=== PATIENT | male | born 1970 | race Caucasian/White ===

== ENCOUNTER 2016-11-24 12:54 | Inpatient (IN) | payer OTHER ==
[~2016-11-24] VITALS: Ht 193 cm; Wt 107.3 kg
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
[2016-11-24 13:35] LABS: BASOPHIL # 0.1 K/uL (0.0-0.2); BASOPHIL % 0.9 %; EOSINOPHIL # 0.1 K/uL (0.0-0.5); HEMATOCRIT 44.6 % (37.0-53.0); HEMOGLOBIN 15.1 g/dL (12.0-17.0); IMMATURE GRANULOCYTE % 0.4 %; LYMPHOCYTE % 25.1 %; MCH 29.4 pg (27.0-34.0); MCHC 33.9 gm/dL (32.0-36.5); MCV 86.9 fl (83.0-98.0); MONOCYTE # 0.6 K/uL (0.0-1.0); MONOCYTE % 6.8 %; MPV 9.8 fl (9.4-12.4); NEUTROPHIL # (ANC) 5.3 K/uL (1.4-9.0); NEUTROPHIL % 65.8 %; NRBC % 0 /100WBC (0-0.00); PLATELET COUNT 318 K/uL (150-450); RBC 5.13 M/uL (4.00-6.00); RDW-CV 12.8 % (11.9-14.6); WBC 8.1 K/uL (4.0-11.0)
[2016-11-24 13:45] LABS: INR - (THERAPEUTIC) 1.1 (0.9-1.1); PROTIME 11.1 SECONDS (9.6-11.1); PTT 25 SECONDS (25-32)
[2016-11-24] MEDS ORDERED: VITAMIN C500 M2 PO (18:38)
[2016-11-24] MEDS ORDERED: THERAGRAN-M1 TAB PO (18:38)
[2016-11-24] MEDS ORDERED: TYLENOL EXTRA500 MG PO (18:39)
[2016-11-24] MEDS ORDERED: ADVIL200 MG PO (18:40)
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
[2016-11-25 04:04] LABS: BASOPHIL % 0.5 %; EOSINOPHIL % 0.5 %; HEMATOCRIT 41.2 % (37.0-53.0); HEMOGLOBIN 13.7 g/dL (12.0-17.0); IMMATURE GRANULOCYTE % 0.2 %; LYMPHOCYTE # 1.7 K/uL (0.8-4.0); LYMPHOCYTE % 20.5 %; MCH 29.1 pg (27.0-34.0); MCHC 33.3 gm/dL (32.0-36.5); MCV 87.5 fl (83.0-98.0); MONOCYTE # 0.8 K/uL (0.0-1.0); MONOCYTE % 9.5 %; MPV 9.8 fl (9.4-12.4); NEUTROPHIL # (ANC) 5.8 K/uL (1.4-9.0); NEUTROPHIL % 68.8 %; NRBC % 0 /100WBC (0-0.00); PLATELET COUNT 266 K/uL (150-450); RBC 4.71 M/uL (4.00-6.00); RDW-CV 13.1 % (11.9-14.6); WBC 8.4 K/uL (4.0-11.0)
[2016-11-25 04:19] LABS: ANION GAP 13.1 (10.0-19.0); BLOOD UREA NITROGEN 13 mg/dL (6-24); CALCIUM 7.7 mg/dL (8.5-10.5); CHLORIDE 106 mMol/L (96-110); CO2 24 mMol/L (22-32); CREATININE 0.8 mg/dL (0.6-1.3); ESTIMATED GFR (MDRD EQUATION) > 60; POTASSIUM 4.1 mMol/L (3.7-5.1); SODIUM 139 mMol/L (135-145)
--- NOTE | 2016-11-25 05:16 | NUR ---
A/O. HR 40-60s. SBP 120s. AFEBRILE. ROOM AIR. DRESSING TO L) FOREARM INTACT WITH SCANT AMOUNT OF DRAINAGE. 2 TAB NORCOx2. MORHINEx1. C/O NAUSEA ZOFRAN GIVEN 400ML EMESIS AFTER, REGLAN GIVEN WITH RELIF NOTED. SBA TO BATHROOM. NO BM. VOIDS PER URINAL.
--- NOTE | 2016-11-25 12:43 | NUR ---
Introduced self and role of care management to patient. He lives in [place] with his . He states that he is able to do all his own ADL's. His will be available to assist as needed. He plans on returning home on discharge. Will have a wound vac and outpatient WOC appointments. He denies any needs at this time. Will continue to follow.
--- NOTE | 2016-11-25 15:50 | NUR ---
Significant Event: ALERT AND ORIENTED. LEFT ARM DRESSING CHANGED THIS AM BY DR TREVINO. WOUND VAC ORDRED AND PLACED BY WO. STARTED ON TORDOL Q6H. IVF DISCONTINNUED. PATIENT WORKING WITH PT/OT. NERVE ENDINGS SENSITIVE. IF PATIENT MOVES CAN FEEL PINKY OCCASIONALLY. 1 SBA WITH AMBULATION. Follow up:
[2016-11-26 04:22] LABS: BASOPHIL # 0.1 K/uL (0.0-0.2); BASOPHIL % 0.7 %; EOSINOPHIL # 0.1 K/uL (0.0-0.5); EOSINOPHIL % 1.3 %; HEMATOCRIT 41.7 % (37.0-53.0); HEMOGLOBIN 13.8 g/dL (12.0-17.0); IMMATURE GRANULOCYTE % 0.3 %; LYMPHOCYTE # 1.6 K/uL (0.8-4.0); LYMPHOCYTE % 24.1 %; MCH 29.2 pg (27.0-34.0); MCHC 33.1 gm/dL (32.0-36.5); MCV 88.2 fl (83.0-98.0); MONOCYTE # 0.8 K/uL (0.0-1.0); MONOCYTE % 11.5 %; MPV 9.9 fl (9.4-12.4); NEUTROPHIL # (ANC) 4.2 K/uL (1.4-9.0); NEUTROPHIL % 62.1 %; NRBC % 0 /100WBC (0-0.00); PLATELET COUNT 251 K/uL (150-450); RBC 4.73 M/uL (4.00-6.00); RDW-CV 12.9 % (11.9-14.6); WBC 6.8 K/uL (4.0-11.0)
--- NOTE | 2016-11-26 05:16 | NUR ---
A/O. HR 50-60s. SBP 120-130s. ROOM AIR. AFEBRILE. WOUND VAC AND DRESSING TO L) FA C/D/I. ZOFRANx1. APPETITE GETTING BETTER. NO PRN PAIN MEDS GIVEN. GAVE SCHEDULED TORADOL. 1A TO BATHROOM. NO BM.
[2016-11-26] MEDS ORDERED: HYDROCODON-ACE1 EAC4 PO (09:46)
[2016-11-26] MEDS ORDERED: TORADOL10 MG PO (09:50)
[2016-11-26] MEDS ORDERED: ZOFRAN8 MG PO (09:54)
[2016-12-23] MEDS ORDERED: CIPRO500 MG PO (15:27)
== END 2016-11-26 11:40 | disposition disaster alternative care site (69) | DRG 908 ==
LOC: GACC 12:54 → GPCU 14:00 → GSDC 14:00 → GPCU 15:57 → GSDC 15:58 → GPCU 11-26 11:40
PROVIDERS: Family Medicine; ADMIT Surgery Vascular Surgery
PROC: 03LA0ZZ Occlusion of Left Ulnar Artery, Open Approach (ICD-10-PCS; principal; 2016-11-24)
PROC: 0KNB0ZZ Release Left Lower Arm and Wrist Muscle, Open Approach (ICD-10-PCS; principal; 2016-11-24)
DX: T79.A12A Traumatic compartment syndrome of left upper extremity, initial encounter (principal); S55.012A Laceration of ulnar artery at forearm level, left arm, initial encounter; S51.812A Laceration without foreign body of left forearm, initial encounter; W26.0XXA Contact with knife, initial encounter; F17.210 Nicotine dependence, cigarettes, uncomplicated
CPT/HCPCS: J0690; J1170; J1644; J1650; J1885; J2175; J2270; J2405; J2440; J2720; J2765; J3010; J3480; J7050